=== PATIENT | female | born 1990 | race Caucasian/White ===

== ENCOUNTER 2018-01-21 13:40 | Emergency (ER) | payer OTHER ==
[~2018-01-21] VITALS: Ht 167.6 cm; Wt 59.0 kg
[2018-01-21 13:48] VITALS: BP 138/83; PULSE 97; RESP 16; TEMP 98.5; O2SAT 100
--- NOTE | 2018-01-21 13:58 | PD ---
HPI Chief Complaint: Headache Time Seen by Provider: 13:58 Travel History International Travel<30 days: No Contact w/Intl Traveler<30days: No Traveled to known affect area: No History of Present Illness HPI 27-year-old female came to the emergency room with history of congestion, ear fullness, pressure on the back of her head, nausea and lack of appetite and sore throat since this morning. No history of fever. Patient took some DayQuil but the symptoms did not get better and she decided to come to the emergency room. Vital signs are stable in triage. Patient says that her daughter who is 2 years old couple days ago was having some thick yellowish discharge from her nose. Patient is otherwise a healthy person. Patient says that she does not think she is but there is a chance. Vital signs are stable. No aggravating or relieving symptoms for her headache. PFSH Past Medical History Narrative Medical List of her past medical, surgical, social and family history reviewed from the nursing note. ?: Unknown Social History Tobacco Use: Yes Allergies-Medications (Allergen,Severity, Reaction): Coded Allergies: No Known Allergies (Unverified , 01/21/18) Comments No known drug allergies. Reported Meds & Prescriptions Reported Meds & Active Scripts Active No Active Prescriptions or Reported Medications Narrative Medication Awaiting for the nurse to do the med reconciliation. Review of Systems Except as stated in HPI: all other systems reviewed are Neg HENT: Positive: Headaches, Congestion Physical Exam Narrative GENERAL: Awake, alert, moderate distress SKIN: Focused skin assessment warm/dry. HEAD: Atraumatic. Normocephalic. EYES: Pupils equal and round. No scleral icterus. No injection or drainage. ENT: No nasal bleeding or discharge. Mucous membranes pink and moist. No erythema or exudates of the pharynx. Left TM slightly dull but not red. NECK: Trachea midline. No JVD. CARDIOVASCULAR: Regular rate and rhythm. No murmur appreciated. RESPIRATORY: No accessory muscle use. Clear to auscultation. Breath sounds equal bilaterally. GASTROINTESTINAL: Abdomen soft, non-tender, nondistended. Hepatic and splenic margins not palpable. MUSCULOSKELETAL: No obvious deformities. No clubbing. No cyanosis. No edema. NEUROLOGICAL: Awake and alert. No obvious cranial nerve deficits. Motor grossly within normal limits. Normal speech. PSYCHIATRIC: Appropriate mood and affect; insight and judgment normal. Data Data Last Documented VS Vital Signs Date Time Temp Pulse Resp B/P (MAP) Pulse Ox O2 Delivery O2 Flow Rate FiO2 01/21/18 16:41 (85) 01/21/18 15:30 60 18 100 Room Air 01/21/18 13:48 98.5 Orders Orders Complete Blood Count With Diff (01/21/18 14:02) Basic Metabolic Panel (Bmp) (01/21/18 14:02) Urinalysis - C+S If Indicated (01/21/18 14:02) Ed Urine Pregnancytest Poc (01/21/18 14:02) Influenzae A/B Antigen (01/21/18 14:02) Sodium Chlor 0.9% 1000 Ml Inj (Ns 1000 M (01/21/18 14:15) Group A Rapid Strep Screen (01/21/18 14:19) Strep Culture (Group A) (01/21/18 14:45) Ed Discharge Order (01/21/18 15:54) Labs Laboratory Tests Test 01/21/18 14:45 01/21/18 15:00 Urine Color YELLOW Urine Turbidity CLEAR Urine pH 7.0 Urine Specific [place] 1.010 Urine Protein TRACE mg/dL Urine Glucose (UA) NEG mg/dL Urine Ketones TRACE mg/dL Urine Occult Blood NEG Urine Nitrite NEG Urine Bilirubin NEG Urine Urobilinogen 0.2 MG/DL Urine Leukocyte Esterase NEG Urine RBC 4-9 /hpf Urine WBC 0-2 /hpf Urine Squamous Epithelial Cells 6-8 /hpf Urine Bacteria RARE /hpf Urine Mucus MOD /lpf Microscopic Urinalysis Comment CULT NOT INDICATED White Blood Count 10.5 TH/MM3 Red Blood Count 4.44 MIL/MM3 Hemoglobin 13.7 GM/DL Hematocrit 40.9 % Mean Corpuscular Volume 92.0 FL Mean Corpuscular Hemoglobin 30.8 PG Mean Corpuscular Hemoglobin Concent 33.5 % Red Cell Distribution Width 12.8 % Platelet Count 195 TH/MM3 Mean Platelet Volume 9.4 FL Neutrophils (%) (Auto) 82.6 % Lymphocytes (%) (Auto) 11.0 % Monocytes (%) (Auto) 4.8 % Eosinophils (%) (Auto) 0.7 % Basophils (%) (Auto) 0.9 % Neutrophils # (Auto) 8.6 TH/MM3 Lymphocytes # (Auto) 1.2 TH/MM3 Monocytes # (Auto) 0.5 TH/MM3 Eosinophils # (Auto) 0.1 TH/MM3 Basophils # (Auto) 0.1 TH/MM3 CBC Comment DIFF FINAL Differential Comment Blood Urea Nitrogen 10 MG/DL Creatinine 0.75 MG/DL Random Glucose 112 MG/DL Calcium Level 9.0 MG/DL Sodium Level 137 MEQ/L Potassium Level 3.6 MEQ/L Chloride Level 103 MEQ/L Carbon Dioxide Level 25.7 MEQ/L Anion Gap 8 MEQ/L Estimat Glomerular Filtration Rate 93 ML/MIN MDM Medical Decision Making Medical Screen Exam Complete: Yes Emergency Medical Condition: Yes Medical Record Reviewed: Yes Differential Diagnosis Viral illness, influenza, strep throat Narrative Course 2:18 PM patient is getting IV fluid bolus. Awaiting for blood tests and influenza to be resulted. 2:46 PM still waiting for the blood test results. Patient will be signed over to the oncoming ER physician. Procedures EKG Prior to Arrival: No Scripts No Active Prescriptions or Reported Meds Soco Gonzalez MD Jan 21, 2018 13:58
[2018-01-21] MEDS ORDERED: SODIUM CHLOR 0.9% 1000 ML INJ 1,000 ML IV ONE (14:15)
[2018-01-21 15:14] LABS: BILIRUBIN, URINE NEG (NEG); BLOOD, URINE NEG (NEG); GLUCOSE,URINE NEG (NEG); KETONE, URINE TRACE mg/dL (NEG); NITRITE,URINE NEG (NEG); URINE COLOR YELLOW (YELLW/STRAW); URINE LEUKOCYTE ESTERASE NEG (NEG)
[2018-01-21 15:16] LABS: AUTOMATED NEUTROPHIL # 8.6 TH/MM3 (1.8-7.7); BASOPHIL # 0.1 TH/MM3 (0-0.2); BASOPHIL % 0.9 % (0.0-2.0); EOSINOPHIL # 0.1 TH/MM3 (0-0.4); EOSINOPHIL % 0.7 % (0.0-4.0); HEMATOCRIT 40.9 % (35.0-46.0); HEMOGLOBIN 13.7 GM/DL (11.6-15.3); LYMPHOCYTE # 1.2 TH/MM3 (1.0-4.8); MEAN CORPUSCULAR HEMOGLOBIN 30.8 PG (27.0-34.0); MEAN CORPUSCULAR HGB CONC 33.5 % (32.0-36.0); MEAN PLATELET VOLUME 9.4 FL (7.0-11.0); MONO % 4.8 % (0.0-8.0); MONOCYTE # 0.5 TH/MM3 (0-0.9); NEUT % 82.6 % (16.0-70.0); PLATELET COUNT 195 TH/MM3 (150-450); RED BLOOD COUNT 4.44 MIL/MM3 (4.00-5.30); RED CELL DISTRIBUTION WIDTH 12.8 % (11.6-17.2); WHITE BLOOD COUNT 10.5 TH/MM3 (4.0-11.0)
[2018-01-21 15:26] LABS: MUCUS URINE MOD /lpf (OCC); WBC, URINE 0-2 /hpf (0-5)
[2018-01-21 15:28] LABS: BACTERIA, URINE RARE /hpf
[2018-01-21 15:28] LABS: BICARBONATE 25.7 MEQ/L (21.0-32.0)
[2018-01-21 15:30] VITALS: BP 114/71; PULSE 60; RESP 18; O2SAT 100
[2018-01-21 15:31] LABS: CREATININE 0.75 MG/DL (0.50-1.00)
--- NOTE | 2018-01-21 15:54 | PD ---
Physical Exam Date Seen by Provider: Jan 21, 2018 Data Data Last Documented VS Vital Signs Date Time Temp Pulse Resp B/P (MAP) Pulse Ox O2 Delivery O2 Flow Rate FiO2 01/21/18 15:30 60 18 114/71 (85) 100 Room Air 01/21/18 13:48 98.5 Orders Orders Complete Blood Count With Diff (01/21/18 14:02) Basic Metabolic Panel (Bmp) (01/21/18 14:02) Urinalysis - C+S If Indicated (01/21/18 14:02) Ed Urine Pregnancytest Poc (01/21/18 14:02) Influenzae A/B Antigen (01/21/18 14:02) Sodium Chlor 0.9% 1000 Ml Inj (Ns 1000 M (01/21/18 14:15) Group A Rapid Strep Screen (01/21/18 14:19) Strep Culture (Group A) (01/21/18 14:45) Labs Laboratory Tests Test 01/21/18 14:45 01/21/18 15:00 Urine Color YELLOW Urine Turbidity CLEAR Urine pH 7.0 Urine Specific [place] 1.010 Urine Protein TRACE mg/dL Urine Glucose (UA) NEG mg/dL Urine Ketones TRACE mg/dL Urine Occult Blood NEG Urine Nitrite NEG Urine Bilirubin NEG Urine Urobilinogen 0.2 MG/DL Urine Leukocyte Esterase NEG Urine RBC 4-9 /hpf Urine WBC 0-2 /hpf Urine Squamous Epithelial Cells 6-8 /hpf Urine Bacteria RARE /hpf Urine Mucus MOD /lpf Microscopic Urinalysis Comment CULT NOT INDICATED White Blood Count 10.5 TH/MM3 Red Blood Count 4.44 MIL/MM3 Hemoglobin 13.7 GM/DL Hematocrit 40.9 % Mean Corpuscular Volume 92.0 FL Mean Corpuscular Hemoglobin 30.8 PG Mean Corpuscular Hemoglobin Concent 33.5 % Red Cell Distribution Width 12.8 % Platelet Count 195 TH/MM3 Mean Platelet Volume 9.4 FL Neutrophils (%) (Auto) 82.6 % Lymphocytes (%) (Auto) 11.0 % Monocytes (%) (Auto) 4.8 % Eosinophils (%) (Auto) 0.7 % Basophils (%) (Auto) 0.9 % Neutrophils # (Auto) 8.6 TH/MM3 Lymphocytes # (Auto) 1.2 TH/MM3 Monocytes # (Auto) 0.5 TH/MM3 Eosinophils # (Auto) 0.1 TH/MM3 Basophils # (Auto) 0.1 TH/MM3 CBC Comment DIFF FINAL Differential Comment Blood Urea Nitrogen 10 MG/DL Creatinine 0.75 MG/DL Random Glucose 112 MG/DL Calcium Level 9.0 MG/DL Sodium Level 137 MEQ/L Potassium Level 3.6 MEQ/L Chloride Level 103 MEQ/L Carbon Dioxide Level 25.7 MEQ/L Anion Gap 8 MEQ/L Estimat Glomerular Filtration Rate 93 ML/MIN [facility] Medical Record Reviewed: Yes Supervised Visit with LORNE: No Interpretation(s) Vital Signs Date Time Temp Pulse Resp B/P (MAP) Pulse Ox O2 Delivery O2 Flow Rate FiO2 01/21/18 15:30 60 18 114/71 (85) 100 Room Air 01/21/18 13:48 98.5 97 16 138/83 (101) 100 CBC & BMP Diagram 01/21/18 15:00 Calcium Level 9.0 Microbiology Date/Time Source Procedure Growth Status 01/21/18 15:00 Nasal Aspirate Influenza Types A,B Antigen ([facility]AZAN) - Final NEGATIVE FOR FLU A AND B ANTIGEN.... Complete 01/21/18 14:45 Throat Group A Streptococcus Screen Pending Received 01/21/18 14:45 Throat Group A Streptococcus Screen ([facility]AZAN) - Final Complete Differential Diagnosis URI, influenza, strep pharyngitis Narrative Course Patient signed out to me by Dr. Gonzalez at change of shift. Patient is a 27-year-old female who presents the emergency room with complaints of fullness to her ears, sore throat, increased nasal congestion with decreased appetite since morning. Patient reports that she feels that she is "all stuffed up." She tried taking DayQuil but did not have resolution of symptoms and decided to come to the emergency room for evaluation. During her emergency room visit, patient was offered a liter of IV fluids which patient denied as she was able to tolerate oral fluids. Lab work including cultures were taken. CBC & BMP Diagram 01/21/18 15:00 Calcium Level 9.0 Lab work benign, influenza was negative, strep was negative, patient was reevaluated. Patient with most likely URI x 1 day. Discussed with her that I will not treat her with antibiotics at this time as her symptoms are most likely viral in nature. Discussed need to drink plenty of fluids, she will need to follow-up with her primary care doctor. Signs and symptoms of when to return to the emergency room was reviewed with patient in detail. Diagnosis Primary Impression: Viral syndrome Patient Instructions: General Instructions Departure Forms: Tests/Procedures, Work Release Enter return to work date: Jan 24, 2018 Additional Instruction: Please provide patient with a copy of their lab work and studies at discharge* * Please follow up with your primary care doctor in 2-3 days Return to the ER if symptoms worsen or progress Return to the ER as needed Please drink plenty of fluids Scripts No Active Prescriptions or Reported Meds Disposition: 01 DISCHARGE HOME Condition: Stable Danika Spaulding DO Jan 21, 2018 15:54
== END 2018-01-21 16:48 | disposition home or self-care (01) ==
LOC: PHED 13:40
DX: B34.9 Viral infection, unspecified (principal); Z72.0 Tobacco use
CPT/HCPCS: 80048; 81001; 84703; 85025; 87081; 87804; 87880; 99283